=== PATIENT | female | born 1965 | race American Indian/Alaskan Native ===

== ENCOUNTER 2017-06-03 17:48 | Outpatient (CLI) | payer MEDICAID, OTHER | END 2017-06-03 17:49 | disposition home or self-care (01) | LOC: LABHHL 17:48 | PROVIDERS: ATTEND Surgery | DX: C50.912 Malignant neoplasm of unspecified site of left female breast (principal) | CPT/HCPCS: 88305; 88342 ==

== ENCOUNTER 2017-09-06 17:51 | Emergency (ER) | payer MEDICAID ==
[2017-09-06] MEDS ORDERED: TYLENOL ONE (21:14)
[2017-09-06 23:28] VITALS: BP 185/97
--- NOTE | 2017-09-06 23:56 | Emergency Department Report ---
ED General Adult HPI - General Chief complaint: Medical Clearance Stated complaint: COSME, C/P, HTN, LOWER BACK PAIN Time Seen by Provider: 09/06/17 23:45 Source: patient, RN notes reviewed, old records reviewed Mode of arrival: Wheelchair Limitations: Physical Limitation - History of Present Illness Initial comments: This is a 52-year-old female who was previously unknown to this provider, her primary care doctor is Dr. Srinivasan, her petrophysicist is Dr. 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 Patient is scheduled to have outpatient breast surgery done, as per an anesthesiology consultation performed on 09/03/2017, "patient needs cardiac clearance and charts due to new EKG changes, LVH, Q waves." Patient was seen by her lumber tying machine operator earlier on yesterday, Dr. Nara Jiménez, and was sent to the ER for evaluation of asymptomatic elevated blood pressure. As per the patient's sister who provides most of the history as the patient is a poor historian, patient was given clonidine in the office for elevated blood pressure and sent to the ER. The patient denies chest pain, shortness of breath , weakness, numbness which is new or different. She initially complained of mild left-sided headache which is not sudden or thunderclap in nature. She currently has no complaints, and is at her baseline. Her sister further corroborates that she is at her baseline. Laboratory studies were sent and indicated normal potassium. Patient was found to have chronic left-sided weakness which is not new, worse or different. A noncontrast CT scan the brain was negative for acute findings. The case was discussed with on-call lumber tying machine operator, Dr. Natividad Scott; he indicated that the cardiology team was not recommending admission for cardiac clearance as the patient is not having chest pain, the patient can follow up with the outpatient cardiology group for blood pressure control. The patient has no complaints at this time, she is resting comfortably in the ER for hours without clinical decompensation. This provider inform the patient's sister that the patient should follow up later on today for her dialysis, they should recontact cardiology to arrange outpatient follow-up as per anesthesiology's request. -: Gradual Location: head Severity scale (0 -10): 0 Consistency: now resolved Improves with: none Worsens with: none Associated Symptoms: denies other symptoms, headaches. denies: confusion, chest pain, cough, diaphoresis, fever/chills, loss of appetite, malaise, nausea/ vomiting, rash, seizure, shortness of breath, syncope, weakness - Related Data Allergies Allergy/AdvReac Type Severity Reaction Status Date / Time No Known Allergies Allergy Unverified 09/03/17 12:21 ED Review of Systems ROS: Stated complaint: COSME, C/P, HTN, LOWER BACK PAIN Other details as noted in HPI Comment: All other systems reviewed and negative Cardiovascular: denies: chest pain Gastrointestinal: denies: abdominal pain Musculoskeletal: denies: back pain ED Past Medical Hx - Past Medical History Previous Medical History?: Yes Hx Hypertension: Yes Hx CVA: Yes Hx of Cancer: Yes - Surgical History Past Surgical History?: Yes Hx Cholecystectomy: Yes - Social History Smoking Status: Former Smoker Substance Use Type: Alcohol ED Physical Exam - General Limitations: Physical Limitation General appearance: alert, in no apparent distress - Head Head exam: Present: atraumatic, normocephalic - Eye Eye exam: Present: normal appearance, EOMI. Absent: nystagmus - ENT ENT exam: Present: normal exam, normal orophraynx, mucous membranes moist, normal external ear exam - Neck Neck exam: Present: normal inspection, full ROM - Respiratory Respiratory exam: Present: normal lung sounds bilaterally. Absent: respiratory distress - Cardiovascular Cardiovascular Exam: Present: regular rate, normal rhythm, normal heart sounds, other (there is a right-sided thoracic hemodialysis access catheter, with no redness, pus or streaking). Absent: systolic murmur, diastolic murmur, rubs, gallop - GI/Abdominal GI/Abdominal exam: Present: soft, normal bowel sounds. Absent: distended, tenderness, guarding, rebound, rigid, pulsatile mass - Extremities Exam Extremities exam: Present: normal inspection. Absent: pedal edema, joint swelling - Back Exam Back exam: Present: normal inspection, full ROM. Absent: tenderness, CVA tenderness (R), paraspinal tenderness, vertebral tenderness - Neurological Exam Neurological exam: Present: alert, oriented X3, motor sensory deficit (chronic weakness left upper extremity, left lower extremity which is unchanged from baseline. There is 5 out of 5 strength right upper, right lower extremity, sensation intact to light touch 4 extremities, decreased in the left hemibody, there is no facial droop, the tones midline, extraocular movements are intact) - Psychiatric Psychiatric exam: Present: normal affect, normal mood - Skin Skin exam: Present: warm, dry, intact, normal color. Absent: rash ED Course Vital Signs 09/06/17 09/06/17 18:34 23:24 Temperature 97.4 F L 98.1 F Pulse Rate 80 62 Respiratory 18 18 Rate Blood Pressure 163/109 Blood Pressure 185/97 [Right] O2 Sat by Pulse 100 98 Oximetry - Reevaluation(s) Reevaluation #1: 09/07/17 01:36 Hypertension is a chronic issue, does not appear to be decompensated, her primary care doctor, petrophysicist or lumber tying machine operator can further address this as an outpatient. The patient does not require admission to the hospital at this time for her asymptomatic chronically elevated blood pressure. ED Medical Decision Making - Lab Data Result diagrams: 09/06/17 23:58 09/06/17 23:58 Vital Signs 09/06/17 09/06/17 18:34 23:24 Temperature 97.4 F L 98.1 F Pulse Rate 80 62 Respiratory 18 18 Rate Blood Pressure 163/109 Blood Pressure 185/97 [Right] O2 Sat by Pulse 100 98 Oximetry Lab Results 09/06/17 09/06/17 Range/Units 23:58 23:58 WBC 4.9 (4.5-11.0) K/mm3 RBC 3.67 (3.65-5.03) M/mm3 Hgb 10.5 (10.1-14.3) gm/dl Hct 33.0 (30.3-42.9) % MCV 90 (79-97) fl MCH 29 (28-32) pg MCHC 32 (30-34) % RDW 16.9 H (13.2-15.2) % Plt Count 205 (140-440) K/mm3 Sodium 139 (137-145) mmol/L Potassium 4.3 (3.6-5.0) mmol/L Chloride 100.0 (98-107) mmol/L Carbon Dioxide 23 (22-30) mmol/L Anion Gap 20 mmol/L BUN 27 H (7-17) mg/dL Creatinine 8.2 H (0.7-1.2) mg/dL Estimated GFR 6 ml/min BUN/Creatinine Ratio 3 % Glucose 89 (65-100) mg/dL Calcium 9.1 (8.4-10.2) mg/dL - EKG Data -: EKG Interpreted by Me - EKG Data When compared to previous EKG there are: no significant change 09/07/17 01:34 Normal sinus, 67 bpm, normal axis, left ventricular hypertrophy, poor R-wave progression, abnormal EKG, not having chest pain, appears unchanged from prior EKG from 09/03/2017, with the exception of resolution of left axis deviation. - Radiology Data Radiology results: report reviewed, image reviewed Noncontrast CT scan of the brain is negative for acute disease Chronic findings noted - Medical Decision Making Differential diagnosis, including but not limited to: Asymptomatic hypertension , chronic renal insufficiency Critical care attestation.: If time is entered above; I have spent that time in minutes in the direct care of this critically ill patient, excluding procedure time. ED Disposition Clinical Impression: CKD (chronic kidney disease), Elevated blood pressure reading Disposition: TO HOME OR SELFCARE Is pt being admited?: No Does the pt Need Aspirin: No Condition: Stable Instructions: Hypertension (ED) Additional Instructions: Continue outpatient medications. Follow-up with her on today. Dialysis as scheduled. Follow up with cardiology, primary care or nephrology within the next 3 days for further evaluation and management of hypertension and elevated blood pressure. It is very important to follow up is recommended, as long-term complications of hypertension includes stroke, heart attack, disability, , paralysis, loss of quality of life. Return to the ER right away with you pain, worsened pain, migration of pain, confusion, intractable nausea or vomiting, inability to tolerate liquid feeds. Referrals: VICTORINA MATAMOROS MD [Primary Care Provider] - 3-5 Days BRETT JIMÉNEZ MD [Staff Physician] - 3-5 Days
[2017-09-07 00:13] LABS: Hemoglobin 10.5 gm/dl (10.1-14.3); Mean Corpuscular HGB Conc 32 % (30-34); Mean Corpuscular Hemoglobin 29 pg (28-32); Mean Corpuscular Volume 90 fl (79-97); Platelet Count 205 K/mm3 (140-440); Red Blood Count 3.67 M/mm3 (3.65-5.03); Red Cell Distribution Width 16.9 % (13.2-15.2)
[2017-09-07 00:25] LABS: Calcium 9.1 mg/dL (8.4-10.2)
--- NOTE | 2017-09-07 00:36 | Cat Scan Report ---
FINAL REPORT EXAM: CT HEAD/BRAIN WO CON HISTORY: anderson htn, hx of cva COMPARISON: None available. TECHNIQUE: Axial images obtained skull base through vertex. FINDINGS: No acute intracranial hemorrhage, midline shift or pathologic extra axial fluid collection. Focal volume loss within the right coronal radiata compatible sequelae of prior remote infarct. Jwjs-[id number] patchy low attenuation within the periventricular white matter greater on the right compatible chronic small vessel ischemic disease. Embolization coils are present along the left paraclinoid region. Otherwise, wagner-white differentiation preserved. Calvarium grossly intact. Visualized ocular globes are grossly unremarkable. Visualized para-nasal sinuses and mastoid air cells are clear. IMPRESSION: No grossly acute intracranial abnormality. Remote infarct of the right coronal radiata and [id number] chronic small vessel ischemic disease.
== END 2017-09-07 01:50 | disposition home or self-care (01) ==
LOC: ED 17:51
DX: I12.0 Hypertensive chronic kidney disease with stage 5 chronic kidney disease or end stage renal disease (principal); N18.6 End stage renal disease; Z99.2 Dependence on renal dialysis; Z90.49 Acquired absence of other specified parts of digestive tract; Z87.891 Personal history of nicotine dependence; Z86.73 Personal history of transient ischemic attack (TIA), and cerebral infarction without residual deficits
CPT/HCPCS: 36415; 70450; 80048; 85027; 93005; 93010; 99284

== ENCOUNTER 2017-10-06 10:07 | Observation (INO) | payer MEDICAID ==
--- NOTE | 2017-09-03 13:31 | Anesthesia Consultation ---
Anesthesia Consult and Med Hx - Airway Anesthetic Teeth Evaluation: Poor ROM Head & Neck: Adequate Mental/Hyoid Distance: Adequate Mallampati Class: Class IV Intubation Access Assessment: Good - Pulmonary Exam CTA: Yes - Cardiac Exam Cardiac Exam: RRR - Pre-Operative Health Status ASA Pre-Surgery Classification: ASA4 Proposed Anesthetic Plan: General Nerve Block: pec blocks - Cardiovascular System Hx Coronary Artery Disease: Yes (Pt needs cardiac clearance in chart due to new ecg changes, LVH, Q waves, )
[~2017-10-06 10:07] MED LIST: NACL 0.9% 1000 ML 1,000 ML IV SCH; PEPCID PO NR; TYLENOL PO NR; VERSED IV NR
[2017-10-06] MEDS ORDERED: SUBLIMAZE IV NR (10:22)
--- NOTE | 2017-10-06 10:22 | Anesthesia Consultation ---
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
--- NOTE | 2017-10-06 10:22 | Anesthesia Day of Surgery ---
Anesthesia Day of Surgery - Day of Surgery Patient Examined: Yes Patient H&P Reviewed: Yes Patient is NPO: Yes Cardiac Clearance: Yes
[2017-10-06] MEDS ORDERED: SUBLIMAZE IV PRN (10:23)
[2017-10-06 10:25] LABS: Basophils # (Auto) 0.1 K/mm3 (0.0-0.1); Basophils % (Auto) 1.5 % (0.0-1.8); Eosinophils # (Auto) 0.2 K/mm3 (0.0-0.4); Hematocrit 38.4 % (30.3-42.9); Hemoglobin 12.5 gm/dl (10.1-14.3); Mean Corpuscular HGB Conc 33 % (30-34); Mean Corpuscular Hemoglobin 30 pg (28-32); Mean Corpuscular Volume 90 fl (79-97); Monocytes # (Auto) 0.4 K/mm3 (0.0-0.8); Monocytes % (Auto) 8.6 % (0.0-7.3); Platelet Count 216 K/mm3 (140-440); Red Blood Count 4.25 M/mm3 (3.65-5.03); Red Cell Distribution Width 16.4 % (13.2-15.2)
[2017-10-06 10:47] LABS: Calcium 10.1 mg/dL (8.4-10.2)
[2017-10-06] MEDS ORDERED: DECADRON ONE (10:59)
[2017-10-06] MEDS ORDERED: ANCEF/STERILE WATER 2 GM/20 ML IV NR (11:00)
[2017-10-06] MEDS ORDERED: VERSED IV NR (11:00)
[2017-10-06] MEDS: NACL 0.9% 1000 ML 1,000 ML IV SCH ×2 (11:14→23:39)
--- NOTE | 2017-10-06 11:40 | Anesthesia Day of Surgery ---
Anesthesia Day of Surgery - Day of Surgery Patient Examined: Yes Patient H&P Reviewed: Yes Patient is NPO: Yes
--- NOTE | 2017-10-06 11:42 | Progress Note ---
Subjective Date of service: 10/06/17 Interval history: Left Pec Block performed under ultrasound guidance. 15cc of 0.5% bupivicaine and 4 mg of decadron injected between pec major and minor. No change in BP or HR. Pt was given 2mg of versed and 100mcg of fentanyl for procedure. Objective - Constitutional Vitals: Vital Signs - 12hr 10/06/17 10/06/17 09:51 10:30 Temperature 98.0 F 98.0 F Pulse Rate 66 66 Respiratory 18 18 Rate Blood Pressure 106/63 106/63 O2 Sat by Pulse 99 99 Oximetry - Labs CBC & Chem 7: 10/06/17 10:00 10/06/17 10:00 Labs: Abnormal lab results 10/06/17 10/06/17 Range/Units 10:00 10:00 RDW 16.4 H (13.2-15.2) % Lymph % (Auto) 43.0 H (13.4-35.0) % [place] % (Auto) 8.6 H (0.0-7.3) % Carbon Dioxide 20 L (22-30) mmol/L Creatinine 6.4 H (0.7-1.2) mg/dL
[2017-10-06] MEDS ORDERED: ZOFRAN IV PRN ×2 (11:51→14:18)
[2017-10-06] MEDS ORDERED: DIPRIVAN 10 MG/ML IV ONE (12:10)
[2017-10-06] MEDS ORDERED: SUBLIMAZE ONE (12:53)
[2017-10-06] MEDS ORDERED: XYLOCAINE MPF 2% ONE (12:53)
[2017-10-06] MEDS ORDERED: WATER FOR IRRIG STERILE IR ONE (13:09)
[2017-10-06] MEDS ORDERED: ZOFRAN ONE (14:15)
[2017-10-06] MEDS ORDERED: BENADRYL PO PRN (14:18)
[2017-10-06] MEDS ORDERED: REGLAN PO PRN ×2 (14:18→14:32)
[2017-10-06] MEDS ORDERED: TYLENOL PO PRN (14:18)
[2017-10-06] MEDS ORDERED: PERCOCET 5/325 PO PRN (14:18)
[2017-10-06] MEDS ORDERED: SODIUM CHLORIDE FLUSH SYRINGE 10 ML IV PRN (14:18)
--- NOTE | 2017-10-06 14:26 | Short Stay Summary ---
Short Stay Documentation Date of service: 10/06/17 - History H&P: obtained from office - Allergies and Medications Current Medications: Allergies No Known Allergies Allergy (Unverified 09/03/17 12:21) Active Medications Acetaminophen (Tylenol) 650 mg PO Q6H PRN PRN Reason: Pain MILD(1-3)/Fever >100.5/COSME Cefazolin Sodium (Ancef/Sterile Water 2 Gm/20 Ml) 2 gm IV PREOP NR Stop: 10/06/17 15:00 Diphenhydramine HCl (Benadryl) 25 mg PO Q8H PRN PRN Reason: Itching Docusate Sodium (Colace) 100 mg PO BID IZZY Fentanyl (Sublimaze) 50 mcg IV Q5MIN PRN PRN Reason: Pain , Severe (7-10) Stop: 10/06/17 16:00 Hydromorphone HCl (Dilaudid) 0.25 mg IV Q10MIN PRN PRN Reason: Pain, Moderate (4-6) Stop: 10/07/17 11:41 Sodium Chloride (Nacl 0.9% 1000 Ml) 1,000 mls @ 42 mls/hr IV DIRECT IZZY Last Admin: 10/06/17 11:14 Dose: 42 mls/hr Lactated Ringer's (Lactated Ringers) 1,000 mls @ 80 mls/hr IV DIRECT IZZY Metoclopramide HCl (Reglan) 10 mg PO Q6H PRN PRN Reason: Nausea And Vomiting Midazolam HCl (Versed) 2 mg IV PREOP NR Stop: 10/06/17 23:59 Last Admin: 10/06/17 11:11 Dose: 2 mg Morphine Sulfate (Morphine) 2 mg IV Q4H PRN PRN Reason: Pain, Moderate (4-6) Ondansetron HCl (Zofran) 4 mg IV ONCE PRN PRN Reason: Nausea And Vomiting Ondansetron HCl (Zofran) 4 mg IV Q8H PRN PRN Reason: N/V unrelieved by Reglan Oxycodone/Acetaminophen (Percocet 5/325) 1 tab PO Q6H PRN PRN Reason: Pain, Moderate (4-6) Sodium Chloride (Sodium Chloride Flush Syringe 10 Ml) 10 ml IV PRN PRN PRN Reason: LINE FLUSH - Brief post op/procedure progress note Date of procedure: 10/06/17 Pre-op diagnosis: Left breast cancer of the upper outer quadrant Post-op diagnosis: same Procedure: Left total mastectomy and SLNB Anesthesia: GETA Findings: Known palpable papilloma at the 4:00 position; 3 SLNs negative for malignancy Surgeon: ZANDRA BOLAND Interactive Web Developer: SHELIA RODRIGUEZ Estimated blood loss: minimal Pathology: list (left mastecomy and SLNsx3) Specimen disposition: to lab Condition: stable - Disposition Condition at discharge: Good Disposition: DC-01 TO HOME OR SELFCARE Short Stay Discharge Plan Activity: other (no heavy lifting) Diet: regular Wound: other (keep incision clean and dry; may shower in 48 hours; no baths, pools or lakes; do not rub or scrub incision) Follow up with: JONA DOUGHERTY MD [Primary Care Provider] - 7 Days ZANDRA BOLAND MD [Staff Physician] - 7 Days
--- NOTE | 2017-10-06 14:28 | Operative Report ---
Operative Report Operative Report: Date of Service: October 06, 2017 Preoperative diagnosis: Left breast cancer of the lower outer quadrant Postoperative diagnosis: Same Procedure: Left total mastectomy with sentinel lymph node biopsy Surgeon: Ellen Ku M.D. Asst.: Fozia Daugherty MD Anesthesia: Gen. Findings: Left breast papilloma DCIS mass at the 4:00 position. 3 sentinel lymph nodes identified and negative for malignancy on frozen section of pathology Complications: None Drains: One 19 Fr Estimated blood loss: Minimal Disposition: PACU in good condition Indications for operative procedure: This is a 52-year-old lady with stage 0 left breast cancer of the lower outer quadrant. Patient with palpable 3 cm left papilloma at the 4:00 position with biopsy findings of DCIS and additional palpable mass aroune 2/3:00 positions with findings of atypia . Recommendations were to proceed with a left total mastectomy given size of known papilloma and patient did not want to proceed with breast conservation. Patient agreed to the above surgery. Procedure in detail: Anesthesia placed left pectoral muscle block prior to going to the operating room. The patient was taken to the operating room and was placed supine. Gen. anesthesia was administered. The right nipple was injected with radioisotope. Timeout was performed. Typical mastectomy incision markings was made. Papilloma was palpable at the 4:00 position. Attention was taken towards the left breast. A gamma probe was inserted into the axilla to identify the sentinel lymph node location with no uptake noted. A skin incision was made with a 10 blade knife and dissection taken down to the subcutaneous tissues. First began raising of the superior flap to the level of the clavicle superiorly and posteriorly to the pectoralis muscle. Followed by raising of the medial flap to the level of the sternum and posteriorly to the pectoralis muscle. Followed by raising of the lateral flap to the level of the latissimus dorsi muscle and taken down posteriorly. The gamma probe was inserted into the axilla. The axillary fascia was opened. Three sentinel lymph nodes were identified with the gamma probe, all remaining counts were less than 10% of the highest SLN. Lymph nodes were sent to pathology with findings negative for malignancy noted on frozen section. Then proceeded with raising of the inferior flap to the level of the inframammary fold taken posterior to the pectoralis muscle. The mastectomy/breast was removed from the pectoralis muscle without incident. The specimen was appropriately marked and sent to pathology. Hemostasis was obtained with the bovie cautery. A 19 Telugu DELON drain was placed. The subcutaneous tissues were approximated and closed using interrupted 3-0 Vicryl. The skin was then closed using a running 4-0 Monocryl followed by skin affix. She was awaken from anesthesia without any complications and transported to PACU in good condition.
[2017-10-06] MEDS: APRESOLINE IV PRN ×2 (14:50→18:17)
[2017-10-06] MEDS: DILAUDID IV PRN ×4 (15:00→15:30)
[2017-10-06] MEDS ORDERED: LACTATED RINGERS 1,000 ML IV SCH (15:00)
[2017-10-06] MEDS ORDERED: PROCARDIA XL PO SCH (15:00)
[2017-10-06] MEDS ORDERED: COREG PO SCH (22:00)
[2017-10-06] MEDS ORDERED: COLACE PO SCH (22:00)
[2017-10-06] MEDS: MORPHINE IV PRN (22:12)
[2017-10-07] MEDS: MORPHINE IV PRN ×2 (01:48→06:09)
--- NOTE | 2017-10-07 08:02 | Progress Note ---
Assessment and Plan This is a 52 year old lady POD #1 left total mastectomy with SLNB for DICS. 1. No acute events overnight, pain well controlled. 2. Left chest incision healing well. 3. DELON drain education. 4. D/C home. Subjective Date of service: 10/07/17 Principal diagnosis: Left breast cancer Interval history: POD# 1 left total mastectomy with SLNB Objective - Constitutional Vitals: Vital Signs - 12hr 10/06/17 10/06/17 10/06/17 20:25 22:08 22:12 Temperature 98.2 F Pulse Rate 78 81 Respiratory 18 20 Rate Blood Pressure 130/81 Blood Pressure 129/73 [Right] 10/07/17 10/07/17 10/07/17 00:00 01:48 04:10 Temperature 98.2 F 98.0 F Pulse Rate 76 71 Respiratory 18 18 18 Rate Blood Pressure Blood Pressure 113/73 124/77 [Right] 10/07/17 06:09 Temperature Pulse Rate Respiratory 18 Rate Blood Pressure Blood Pressure [Right] General appearance: Present: no acute distress - EENT Eyes: PERRL, EOM intact ENT: hearing intact, poor dentition Ears: bilateral: normal - Neck Neck: supple, normal ROM - Respiratory Respiratory effort: normal Respiratory: bilateral: CTA - Breasts Breasts: other (left chest incision healing well; no hematoma; skin well perfused; DELON drain to bulb suction) - Cardiovascular Rhythm: regular Extremities: no ischemia, No edema, normal temperature, normal color, Full ROM - Gastrointestinal General gastrointestinal: Present: soft, non-tender, non-distended Rectal Exam: deferred - Genitourinary Female genitourinary: deferred - Integumentary Integumentary: clear, warm, dry - Musculoskeletal Musculoskeletal: other (known left paralysis from CVA in 2010) - Psychiatric Psychiatric: appropriate mood/affect, intact judgment & insight, memory intact, cooperative - Labs CBC & Chem 7: 10/06/17 10:00 10/06/17 10:00 Labs: Abnormal lab results 10/06/17 10/06/17 Range/Units 10:00 10:00 RDW 16.4 H (13.2-15.2) % Lymph % (Auto) 43.0 H (13.4-35.0) % [place] % (Auto) 8.6 H (0.0-7.3) % Carbon Dioxide 20 L (22-30) mmol/L Creatinine 6.4 H (0.7-1.2) mg/dL
[2017-10-07 09:06] VITALS: BP 130/83
== END 2017-10-07 09:30 | disposition home or self-care (01) ==
LOC: OR 10:07 → OB 14:18
PROVIDERS: ADMIT Surgery; ATTEND Surgery
DX: C50.512 Malignant neoplasm of lower-outer quadrant of left female breast (principal); I25.10 Atherosclerotic heart disease of native coronary artery without angina pectoris; I12.0 Hypertensive chronic kidney disease with stage 5 chronic kidney disease or end stage renal disease; N18.6 End stage renal disease; Z99.2 Dependence on renal dialysis; D63.1 Anemia in chronic kidney disease; Z86.73 Personal history of transient ischemic attack (TIA), and cerebral infarction without residual deficits
CPT/HCPCS: 19303; 36415; 38525; 64450; 78800; 80053; 85025; 88307; 88331; 88341; 88342; 93005; 93010; 96374; 96375; 96376; A9541; G0378; J0360; J0690; J1100; J1170; J2250; J2270; J2405; J2704; J3010; J7030; 88333

== ENCOUNTER 2018-01-10 15:30 | Outpatient (CLI) | payer MEDICAID | END 2018-01-10 15:31 | disposition home or self-care (01) | LOC: LABHHL 15:30 | PROVIDERS: ATTEND Internal Medicine Hematology & Oncology | DX: C50.912 Malignant neoplasm of unspecified site of left female breast (principal); I12.0 Hypertensive chronic kidney disease with stage 5 chronic kidney disease or end stage renal disease; N18.6 End stage renal disease; E78.00 Pure hypercholesterolemia, unspecified; I25.10 Atherosclerotic heart disease of native coronary artery without angina pectoris | CPT/HCPCS: 88342; 88361 ==